=== PATIENT | male | born 1990 | race Caucasian/White ===

== ENCOUNTER 2025-02-06 19:33 | Emergency (ER) | payer SELFPAY ==
[2025-02-06 19:37] VITALS: BP 161/102; PULSE 83; TEMP 36.9; O2SAT 98; BMI 26.6
--- NOTE | 2025-02-06 20:12 | PC.NURSE ---
pt able to lift arm side to side with limited elevation. pain increases when lifting higher in the air.
--- NOTE | 2025-02-06 20:24 | ED.UPPEXIN1 ---
HPI HPI - Extremity Injury (Upper) General Chief Complaint: Extremity Injury, Upper Stated Complaint: RIGHT SHOULDER PAIN Time Seen by Provider: 02/06/25 20:10 Source: patient Mode of arrival: walk-in History of Present Illness HPI narrative: Patient is a 34-year-old male who presents to the emergency department for right shoulder pain that has been increasing over the last 10 days. He states he was helping a friend lift furniture. He states pain is worsening in the glenohumeral joint and his right arm feels heavy. No peripheral paresthesias. He is right-hand dominant. No medications taken prior to arrival. They have been using heat without improvement. Related Data Previous Rx's ?Medication ?Instructions ?Recorded ketorolac 10 mg tablet 10 mg PO TID PRN pain #10 tabs 02/06/25 methocarbamol 750 mg tablet 750 mg PO TID PRN pain #20 tabs 02/06/25 methylprednisolone 4 mg tablets in See Rx Instructions .Route 02/06/25 a dose pack (Medrol (Martin)) .COMPLEX #21 ea Allergies Allergy/AdvReac Type Severity Reaction Status Date / Time No Known Drug Allergies Allergy Verified 02/06/25 19:42 Opioid HPI Opioid Management Most Recent Pain and Opioid Data: No Data to Display Review of Systems ROS Constitutional Denies: fever or chills Ears, nose, mouth, and throat Denies: throat pain or nasal congestion Cardiovascular Denies: chest pain Respiratory Denies: shortness of breath or cough Gastrointestinal Denies: nausea or vomiting Musculoskeletal Reports: extremity pain, joint pain and limited range of motion; Denies: back pain Integumentary/Breast Denies: rash Endocrine Denies: excessive urination or excessive thirst PFSH PFSH Social History Little interest or pleasure in doing things: not at all Feeling down, depressed, or hopeless: not at all Exam Narrative Exam Narrative: Gen.: Awake, alert, in no distress Head: Normocephalic, atraumatic ENT: Moist mucous membranes Respiratory: No respiratory distress 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 Pain with abduction of the right shoulder. No obvious deformity or sulcus sign. No bony point tenderness Psych: Normal mood and affect Neuro: No focal neuro deficit Skin: Warm, dry, intact Constitutional Vital Signs, click to edit/add: Last Vital Signs Temp 98.4 F 02/06/25 19:37 Pulse 83 02/06/25 19:37 Resp 16 02/06/25 19:37 BP 161/102 H 02/06/25 19:37 Pulse Ox 98 02/06/25 19:37 O2 Del Method Room Air 02/06/25 19:37 Course Vital Signs Vital signs: Vital Signs Temperature 98.4 F 02/06/25 19:37 Pulse Rate 83 02/06/25 19:37 Respiratory Rate 16 02/06/25 19:37 Blood Pressure 161/102 H 02/06/25 19:37 Pulse Oximetry 98 02/06/25 19:37 Oxygen Delivery Method Room Air 02/06/25 19:37 Temperature 98.4 F 02/06/25 19:37 Pulse Rate 83 02/06/25 19:37 Respiratory Rate 16 02/06/25 19:37 Blood Pressure 161/102 H 02/06/25 19:37 Pulse Oximetry 98 02/06/25 19:37 Oxygen Delivery Method Room Air 02/06/25 19:37 MDM - Extremity Injury (Upper) MDM Narrative Medical decision making narrative: X-rays of the right shoulder with no evidence of bony abnormality. Patient medicated for pain and discharged home to follow-up with orthopedics. Rest, ice, gentle stretching. Return to the ER if symptoms change or worsen. SUPERVISED APC VISIT, PHYSICIAN ATTESTATION: Based on the medical record the care appears appropriate. ? Medical Records Attestation: I reviewed the patient's medical records. Imaging Data XR shoulder: Attestation: I have reviewed the pertinent imaging results. Discharge Plan Discharge Chief Complaint: Extremity Injury, Upper Clinical Impression: Acute pain of right shoulder, Right shoulder strain Patient Disposition: Home, Self-Care Time of Disposition Decision: 20:23 Condition: Good Mode of Transportation: Private Vehicle Prescriptions / Home Meds: New ketorolac 10 mg tablet 10 mg PO TID PRN (Reason: pain) Qty: 10 0RF methocarbamol 750 mg tablet 750 mg PO TID PRN (Reason: pain) Qty: 20 0RF methylprednisolone [Medrol (Martin)] 4 mg tablets,dose pack See Rx Instructions .ROUTE .COMPLEX Qty: 21 0RF Rx Instructions: Taper as directed Print Language: Slovak Instructions: Shoulder Pain (ED) Referrals: Physician,Non-Staff, [Primary Care Provider] - 1 week Ivan Lord MD [Physician] - 02/14/25 10:30 am Discharge Date/Time: 02/06/25 20:54
[2025-02-06] MEDS: KETOROLAC TROMETHAMINE 10 MG TABLET PO (20:51)
[2025-02-06] MEDS: PREDNISONE 20 MG TABLET 60 MG PO (20:51)
[2025-02-06] MEDS: METHOCARBAMOL 500 MG TABLET 1000 MG PO (20:51)
== END 2025-02-06 20:54 | disposition home or self-care (01) ==
PROVIDERS: Emergency Provider Internal Medicine
DX: S46.911A Strain of unspecified muscle, fascia and tendon at shoulder and upper arm level, right arm, initial encounter (principal); X50.0XXA Overexertion from strenuous movement or load, initial encounter; M25.511 Pain in right shoulder
CPT/HCPCS: 73030; 99283; J7512

== ENCOUNTER 2025-04-14 21:14 | Emergency (ER) | payer BC, SELFPAY ==
--- OUTSIDE RECORDS SUMMARY | 2025-04-14 21:21 | XMS_ITS | Patient Health Record ---
Author Organization [facility] Address [address] [place] [address] Care Team Providers Care Fermentologist Name Role Phone RisaIvan Unavailable [phone] Reason For Referral No Information Plan Of Treatment No Information
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
--- OUTSIDE RECORDS SUMMARY | 2025-04-14 21:21 | XMS_ITS | Patient Health Record ---
Author Organization [facility] Address [address] [address] Care Team Providers Care Executive Assistant To President Name Role Phone Betsy Glover Primary Care Provider Reason For Referral No Information Medications Medication SIG (Take, Route, Fr equency, Duration) Notes Start Date End Date Status Omeprazole 20 MG 1 tablet Orally Once a day for 30 day(s) 10/06/2017 Active Social History Tobacco Use: Social History Observation Description Date Details (start date - stop date) Current Smoker NA - NA Tobacco Screen: Question Answer Notes Are you a: current smoker How often do you smoke cigarettes? some days, bu t not every day How many cigarettes a day do you smoke? 6-10 How soon after you wake up d o you smoke your first cigarette? after 60 min Are you interested in quitting? Thinking about q uitting Sexual Hx: Question Answer Notes Had sex in the last 12 months (vaginal, oral, or anal)? Yes with Women only Use protection? Yes How often? Most of the time Prevention Strategies discussed: Condoms Have you ever had an STD? Yes Chlamydia? Yes Alcohol Screening: Question Answer Notes Did you have a drink contain ing alcohol in the past year? Yes How often did you have a dri nk containing alcohol in the past year? Two to four times a month (2 points) How many drinks did you have on a typical day when you were drinking in the past year? 10 or more (4 points) How often did you have six o r more drinks on one occasion in the past year? Monthly (2 points) Points 8 Interpretation Positive Depression Screening (PHQ-2): Question Answer Notes Little interest or pleasure in doing things No Feeling down depressed or hopeless No Problems Problem Type SNOMED Code ICD Code Onset Dates Problem Status W/U Status Risk Notes Problem [id number] Gastric reflux (K21.9) Active confirmed Plan Of Treatment No Information Insurance Providers Payer Name Payer Address Payer Phone Subscriber Number Group Number Insured Name Patient Relationship to Insured Coverage Start Date Coverage End Date XXXSELF PAY 1 ROBBY HAMM Self - patient is the insured Medical (General) History Medical History History ICD Code kidney stones dislocation of left shoulder
[2025-04-14 21:43] VITALS: BP 158/99; PULSE 104; TEMP 36.7; O2SAT 96; BMI 28.1
--- NOTE | 2025-04-14 22:41 | ED_ITS ---
[facility] HPI - Extremity Injury (Lower) General Chief Complaint: Extremity Injury, Lower Stated Complaint: RIGHT TOE PAIN Time Seen by Provider: 04/14/25 22:36 Source: patient Mode of arrival: walk-in Limitations: no limitations History of Present Illness HPI Narrative: The patient is an otherwise healthy 34-year-old male who presents to the emergency department his significant other secondary to right great toe pain. About a week ago the patient dropped a weight on his toe. He never got it x- rayed. The pain and swelling have continued to progress. Patient is concerned that there is an infection under the nail and he wanted his significant other to drain it and she would not. He is presenting here for evaluation. He never had an x-ray. Pain is moderate in severity. It is worse to ambulate. Relieved by nothing. Injury: Right: toes (Right great) Type of Injury: Reports blunt (Weight dropped on his foot.) Place: Reports home Severity: severe Relieving factors: Reports nothing Exacerbating factors: Reports weight bearing Context: Reports direct blow Associated symptoms: Reports swelling and able to partially bear weight (With her tremendous amount of pain.) Related Data Previous Rx's ?Medication ?Instructions ?Recorded cephalexin 500 mg capsule 500 mg PO Q6H 7 days #28 cap s 04/14/25 hydrocodone 7.5 mg-acetaminophen 1 tab PO Q6H PRN pain #10 tabs 04/14/25 300 mg tablet Allergies Allergy/AdvReac Type Severity Reaction Status Date / Time No Known Drug Allergies Allergy Verified 04/14/25 21:42 Opioid HPI Opioid Management Most Recent Pain and Opioid Data: Last Pain Scale 10 04/14/25, 22:49 Last MAR Pain Assessment 04/14/25, 22:49 Review of Systems ROS Narrative 10 Systems were reviewed, and unless not ed in the HPI, all other systems are reviewed, unremarkable, or noncontributory. [facility] Social History Little interest or pleasure in doing things: not at all Feeling down, depressed, or hopeless: not at all Exam Narrative Exam Narrative: Prior to examining the patient, I have washed with hospital approved and provided Antiseptic Hand Dairy Manager and have also applied gloves.? Prior to touching the patient, I asked for consent to examine the patient.? General: Alert and oriented, well nourished, mild distress. Eye: PERRL, EOMI, normal conjunctiva. HENT: Normocephalic, normal hearing, moist oral mucosa, no scleral icterus, Musculoskeletal: Normal range of motion and strength, tenderness and swelling to the right great toe. There is pain around the paronychial folds. The patient has a nail that appears to be loose in the proximal portion of the paronychial fold. There is a purulent appearing material under the nail and white purulence under the skin at the most distal part of the toe. Skin: Skin is warm, dry and pink, no rashes or lesions. Neurologic: Awake, alert, and oriented X3, CN II-XII intact. Psychiatric: Cooperative, appropriate mood and affect.? Following the conclusion of the examination, I have washed my hands thoroughly after removing examination gloves. Constitutional Vital Signs, click to edit/add: Last Vital Signs Temp 98.1 F 04/14/25 21:43 Pulse 104 H 04/14/25 21:43 Resp 16 04/14/25 21:43 BP 158/99 H 04/14/25 21:43 Pulse Ox 96 04/14/25 21:43 O2 Del Method Room Air 04/14/25 21:43 Course Course Hospital Course: Patient had a paronychial drainage. Patient was given antibiotic and analgesic medication. Vital Signs Vital signs: Vital Signs Temperature 98.1 F 04/14/25 21:43 Pulse Rate 104 H 04/14/25 21:43 Respiratory Rate 16 04/14/25 21:43 Blood Pressure 158/99 H 04/14/25 21:43 Pulse Oximetry 96 04/14/25 21:43 Oxygen Delivery Method Room Air 04/14/25 21:43 Temperature 98.1 F 04/14/25 21:43 Pulse Rate 104 H 04/14/25 21:43 Respiratory Rate 16 04/14/25 21:43 Blood Pressure 158/99 H 04/14/25 21:43 Pulse Oximetry 96 04/14/25 21:43 Oxygen Delivery Method Room Air 04/14/25 21:43 MDM - Extremity Injury (Lower) MDM Narrative Medical decision making narrative: Patient presented to the emergency department because he dropped a weight on his toe about a week ago. He is continue to have pain in the great toe and its progressively gotten worse over the last week. Now the patient is having a hard time bearing weight. In summary, the patient was found to have a paronychial abscess which is extended under the nail. Patient had an incision and drainage and improvement in his discomfort. Patient is going to take outpatient antibiotic and analgesic medication. Differential Diagnosis Differential diagnosis: Likely fracture of toe and other (Subungual hematoma) Medical Records Attestation: I reviewed the patient's medical records. Imaging Data right Foot Xray: Attestation: I personally reviewed and interpreted this imaging study as follows: My impression: No evidence of fracture, dislocation, subluxation, or soft tissue swelling. Discharge Plan Discharge Stand Alone Forms: Work/School Release Chief Complaint: Extremity Injury, Lower Clinical Impression: Acute paronychia of toe of right foot Patient Disposition: Home, Self-Care Time of Disposition Decision: 23:42 Condition: Good Mode of Transportation: Private Vehicle Prescriptions / Home Meds: New cephalexin 500 mg capsule 500 mg PO Q6H 7 Days Qty: 28 0RF hydrocodone-acetaminophen 7.5-300 mg tablet 1 tab PO Q6H PRN (Reason: pain) Qty: 10 0RF Print Language: Cuban Instructions: Paronychia (ED) Additional Instructions: Thank you for trusting me with your care today. Referrals: Nicholas Cardozo DO [Primary Care Provider] - 1 week Discharge Date/Time: 04/14/25 23:48 Procedures ED Procedure Instructions Procedures Procedures: Paronychial drainage: I gave the patient a digital block with lidocaine 1% without epinephrine. A total of 3 mL was used. Then I used a 15 blade to incise a sandie incision at the top of the toe. I also used it to make a sandie incision at the proximal portion of the paronychial fold and the patient had copious amount of purulent material coming from the toe. It was drained under pressure. Then, the patient has a loose nail as there was purulent material under the nail and that is likely why the patient was having so much pain and discomfort.
[2025-04-14] MEDS: KETOROLAC TROMETHAMINE 60 MG/2 ML VIAL IM (22:49)
[2025-04-14] MEDS: LIDOCAINE HCL 1% 100 MG/10 ML MDV INJ (22:55)
[2025-04-14] MEDS: HYDROCODONE/ACETAMINOPHEN 7.5-325 MG/15 ML CUP 7.5 MG PO (22:55)
[2025-04-14] MEDS: CEPHALEXIN 500 MG CAPSULE PO (22:55)
== END 2025-04-14 23:48 | disposition home or self-care (01) ==
PROVIDERS: Emergency Provider Emergency Medicine; PCP Family Medicine
DX: L03.031 Cellulitis of right toe (principal); M79.674 Pain in right toe(s)
CPT/HCPCS: 10060; 73630; 96372; 99284; J1885